=== PATIENT | male | born 1980 | race Caucasian/White ===

== ENCOUNTER 2020-02-10 00:25 | Emergency (ER) | payer OTHER, MEDICAID, SELFPAY ==
[2020-02-10 00:35] VITALS: BP 140/77; PULSE 66; RESP 16; TEMP 36.4; O2SAT 100; BMI 26.5
--- NOTE | 2020-02-10 00:39 | DI.US.S_ITS ---
PROCEDURE: US SCROTUM INDICATIONS: LEFT TESTICULAR PAIN TECHNIQUE: Real-time scanning was performed of the scrotum and testicles, with image documentation. Color and pulse Doppler interrogation was performed of both testicles. COMPARISON: None. FINDINGS: Right: Testicle is normal in size at 4.2 x 2.3 x 3.7 cm, and homogenous in echotexture. Epididymis is normal in overall size and morphology. No hydrocele or varicoceles. Overlying scrotal skin is normal in thickness. Left: Testicle is normal in size at 4.5 x 2.4 x 3.4 cm, and homogeneous in echotexture. The left epididymis demonstrates heterogeneous echogenicity with increased vascularity. No hydrocele or varicoceles. Overlying scrotal skin is normal in thickness. Doppler: Color and pulse Doppler demonstrate normal and symmetric arterial flow in both testicles. IMPRESSION: 1. No sonographic evidence for testicular torsion. 2. Findings suggestive of left epididymitis. 3. Normal sonographic appearance of the bilateral testicles and right epididymis. No significant discrepancy with the shift supervisor film processing radiology preliminary report. Dictated by: Stephen Barber M.D. on 02/10/2020 at 8:21 Approved by: Stephen Barber M.D. on 02/10/2020 at 8:23
--- NOTE | 2020-02-10 01:42 | ED_ITS ---
HPI - Male Genitourinary General Chief complaint: Urogenital-Male Stated complaint: left side/stomach pain into testicle thinks hernia Time Seen by Provider: 02/10/20 00:25 Source: patient Mode of arrival: Ambulatory Limitations: no limitations History of Present Illness HPI Narrative: 40-year-old male smoker with noncontributory medical history presents with a chief complaint of pain and perceived swelling in his left testicle for the past few days in the absence of any injury. He does have some radiation of the discomfort into was lower abdomen. He has no penile discharge, dysuria, frequency or urgency. He is sexually active but states he always wears a condom. He denies fever or chills. He has had no nausea or vomiting. MD Complaint: testicle pain Onset (ago): day(s) Duration: constant Location: left testicle Radiation: left inguinal region Severity: moderate Quality: aching Relieving factors: rest Exacerbating factors: movement Associated symptoms: Reports denies other symptoms Related Data Sexually active: Yes Previous Rx's Medication Instructions Recorded doxycycline hyclate 100 mg PO BID #20 tab 02/10/20 Allergies Allergy/AdvReac Type Severity Reaction Status Date / Time No Known Drug Allergies Allergy Verified 02/10/20 02:07 Review of Systems Constitutional Constitutional: Denies chills, Denies fatigue, Denies fever(s), Denies frequent falls, Denies lethargy and Denies weakness Eyes Eyes: Denies change in vision, Denies eye discharge, Denies irritation and Denies loss of vision ENT Ears, Nose, Mouth, and Throat: Denies change in voice, Denies dizziness, Denies neck pain, Denies sore throat and Denies throat swelling Cardiovascular Cardiovascular: Denies chest pain, Denies irregular heart rhythm, Denies lightheadedness, Denies palpitations, Denies dyspnea, Denies dyspnea on exertion and Denies orthopnea Respiratory Respiratory: Denies cough, Denies dyspnea, Denies dyspnea on exertion and Denies wheezing Gastrointestinal Gastrointestinal: Denies abdominal pain, Denies change in bowel habits, Denies diarrhea, Denies nausea and Denies vomiting Genitourinary Genitourinary: Denies hematuria, Denies flank pain, Reports testicular mass, Reports testicular pain, Denies urinary incontinence and Denies urinary urgency Musculoskeletal Musculoskeletal: Denies back pain, Denies muscle weakness, Denies neck pain, Denies numbness and Denies tingling Integumentary/Breasts Skin/Breast: Denies pruritus, Denies erythema, Denies rash and Denies wounds Neurologic Neurologic: Denies behavioral changes, Denies confusion, Denies dizziness, Denies frequent falls, Denies loss of vision, Denies numbness, Denies tingling and Denies weakness Psychiatric Psychiatric: Denies anxiety, Denies behavioral changes, Denies confusion, Denies depression, Denies homicidal ideation and Denies suicidal ideation Endocrine Endocrine: Denies fatigue, Denies flushing and Denies palpitations Hematologic/Lymphatic Hematologic/Lymphatic: Denies easy bruising Allergic/Immunologic Allergic/Immunologic: Denies urticaria, Denies throat swelling and Denies wheezing Patient History Social History Smoking Status: Current every day smoker Smoking Status: Current every day smoker Substance Use Type: does not use Exam Narrative Exam Narrative: GENERAL: [32] year old patient appears stated age. Well- nourished, well-developed patient, in mild distress. HEAD: Atraumatic. Normocephalic. EYES: Pupils equal round and reactive. Extraocular motions intact. No scleral icterus. No injection or drainage. ENT: Nose without bleeding, purulent drainage. Throat without erythema, tonsillar hypertrophy or exudate. Airway patent. NECK: Trachea midline. Non tender CARDIOVASCULAR: Regular rate and rhythm without murmurs, gallops, or rubs. RESPIRATORY: Clear to auscultation. Breath sounds equal bilaterally. No wheezes, rales, or rhonchi. GASTROINTESTINAL: Abdomen soft, non-tender, nondistended. : No obvious swelling, erythema or mass. No evidence of hernia. Examined while patient standing. Tenderness to palpation on superior pole of left testicle. EXTREMITIES: No edema or joint tenderness. BACK: Nontender without deformity or crepitance. No flank tenderness. NEURO: AOx3. SKIN: No rash or erythema of visible areas Initial Vital Signs Initial Vital Signs: Vital Signs Temperature 97.6 F 02/10/20 00:35 Pulse Rate 66 02/10/20 00:35 Respiratory Rate 16 02/10/20 00:35 Blood Pressure 140/77 02/10/20 00:35 Pulse Oximetry 100 02/10/20 00:35 Course Course Course Narrative: Urine suggest UTI, patient is sexually active and imaging would indicate mild epididymitis. Patient given Rocephin IM as well as prescription for doxycycline. He has been given return precautions and has had his questions answered to his apparent satisfaction. Orders Ordered: ED Orders 02/10/20 00:39 US scrotum Stat 02/10/20 01:40 Urine Culture Stat Urine Microscopic Stat Discontinued Medications Ceftriaxone Sodium (Rocephin) 250 mg IM NOW ONE Stop: 02/10/20 01:49 Last Admin: 02/10/20 02:11 Dose: 250 mg Documented by: HU Vital Signs Vital signs: Vital Signs - 8 hr 02/10/20 00:35 02/10/20 01:59 Temperature 97.6 F Pulse Rate 66 71 Respiratory Rate 16 18 Blood Pressure 140/77 Blood Pressure [Left Arm] 114/58 L Pulse Oximetry 100 100 MDM - Male Genitourinary Lab Data Labs: Lab Results 02/10/20 Range/Units 01:40 Urine RBC 5-10/hpf H (0-5/HPF) Urine WBC 1-5/hpf (0-5/HPF) Ur Squamous Epith Cells 0-1 /hpf (0-5/HPF) Urine Bacteria Few (2-10) H (None) Ur Culture Indicated? Specimen cultured Urine Dip Bedside Urine Glucose Negative Bedside Urine Bilirubin - Negative Bedside Urine Ketone - Negative Urine Specific [place] 1.015 Bedside Urine Occult Blood +++ Bedside Urine pH 6.5 Bedside Urine Protein - Negative Bedside Urine Urobilinogen - Negative Bedside Urine Nitrite - Negative Bedside Urine Leukocytes ++ 125 Esterase Discharge Plan Departure Patient Disposition: Home Clinical Impression: Epididymitis Discharge Date/Time: 02/10/20 02:19 Instructions: DI for Epididymitis Activity Restrictions/Additional Instructions: *You have been diagnosed with [acute left-sided epididymitis] *What to do: *Take medications as directed *Follow up with your primary care provider in 2-3 days, call for an chen ointment. Let them know you were seen in the Emergency Department and that we ask that you be seen in follow up *Return to ER if you should have any new, worsening or concerning symptoms Prescriptions: New doxycycline hyclate 100 mg tablet 100 mg PO BID Qty: 20 RF: 0 Referrals: [facility] Resources [Outside]
[2020-02-10 01:49] LABS: RBC Urine 5-10/HPF (0-5/HPF); Squamous Epithelial Cell Urine 0-1 /HPF (0-5/HPF); WBC Urine 1-5/HPF (0-5/HPF)
[2020-02-10 01:50] LABS: Bacteria Urine Few (2-10)
[2020-02-10 01:51] LABS: Culture Indicated Urine Specimen Cultured
[2020-02-10 01:59] VITALS: BP 114/58; PULSE 71; RESP 18; O2SAT 100
[2020-02-10] MEDS: cefTRIAXone 500 MG VIAL 250 MG IM (02:11)
[2020-02-10] MEDS: LIDOCAINE 1% (PF) 2 ML (02:11)
== END 2020-02-10 02:19 | disposition home or self-care (01) ==
PROVIDERS: Emergency Provider Emergency Medicine
DX: N45.1 Epididymitis (principal)
CPT/HCPCS: 76870; 81003; 81015; 87086; 96372; 99283; 99284; J0696